=== PATIENT | male | born 1995 ===

== ENCOUNTER 2017-04-02 13:35 | Emergency (ER) | payer SELFPAY ==
[2017-04-02 13:35] VITALS: BMI 21.5
[2017-04-02 13:55] VITALS: BP 117/71; PULSE 82; RESP 18; TEMP 98.2; O2SAT 99
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
== END 2017-04-02 16:08 | disposition home or self-care (01) ==
LOC: H.ER 13:35
DX: M25.512 Pain in left shoulder (principal); Y04.0XXA Assault by unarmed brawl or fight, initial encounter; Y92.89 Other specified places as the place of occurrence of the external cause